=== PATIENT | female | born 1965 | race Two or more races ===

== ENCOUNTER 2016-09-03 07:45 | Emergency (ER) | payer BC, OTHER ==
[~2016-09-03] VITALS: Ht 162.6 cm; Wt 68.0 kg
--- NOTE | 2016-09-03 07:46 | NUR ---
dr mena at the bedside for eval and exam.
[2016-09-03] MEDS: ACETAMINOPHEN ES 500 MG TABLET PO ONE (07:49)
[2016-09-03] MEDS ORDERED: ACETAMINOPHEN ES 500 MG TABLET ONE (08:00)
--- NOTE | 2016-09-03 08:19 | NUR ---
Patient discharged to home in stable conditon. Written and verbal after care instructions given. Patient verbalizes understanding of instructions.
[2016-09-03 08:20] VITALS: BP 115/75
== END 2016-09-03 08:20 | disposition home or self-care (01) ==
LOC: ER 07:45
DX: S92.405A Nondisplaced unspecified fracture of left great toe, initial encounter for closed fracture (principal); X58.XXXA Exposure to other specified factors, initial encounter; Y93.89 Activity, other specified; Y92.9 Unspecified place or not applicable; Y99.9 Unspecified external cause status
CPT/HCPCS: 73660; A4663

== ENCOUNTER 2017-02-07 01:56 | Emergency (ER) | payer OTHER ==
[~2017-02-07] VITALS: Ht 162.6 cm; Wt 68.0 kg
--- NOTE | 2017-02-07 02:22 | NUR ---
Patient walked in to ER c/o needlestick injury. 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 She states that the needle punctured the patient and then herself. To room 5A. HIWOT provided with details per needlestick protocol.
[2017-02-07] MEDS ORDERED: TDAP DIPH,PERTUSS,TET VAC/PF 0.5 ML DISP.SYRIN IM ONE ×2 (02:45→02:52)
--- NOTE | 2017-02-07 03:05 | NUR ---
Patient discharged to home in stable conditon. Written and verbal after care instructions given. Patient verbalizes understanding of instructions.
[2017-02-08 10:07] LABS: HEPATITIS B SURFACE AB Non Reactive (.)
== END 2017-02-07 03:09 | disposition home or self-care (01) ==
LOC: ER 01:56
DX: Z77.21 Contact with and (suspected) exposure to potentially hazardous body fluids (principal); S59.911A Unspecified injury of right forearm, initial encounter; Z23 Encounter for immunization; W46.0XXA Contact with hypodermic needle, initial encounter; Y93.89 Activity, other specified; Y92.89 Other specified places as the place of occurrence of the external cause; Y99.0 Civilian activity done for income or pay
CPT/HCPCS: 36415; 86704; 86706; 86803; 87806; 90715; A4663

== ENCOUNTER 2017-02-16 07:37 | Outpatient (CLI) | payer BC, OTHER ==
[2017-02-16 08:40] LABS: BASOPHILS # (AUTO) 0.1 K/uL (0.0-8.0); BASOPHILS % (AUTO) 0.9 % (0.0-2.0); EOSINOPHILS # (AUTO) 0.2 K/uL (0.0-0.7); EOSINOPHILS % (AUTO) 2.6 % (0.0-7.0); HEMATOCRIT 40.5 % (31.2-41.9); LYMPHOCYTES # (AUTO) 1.7 K/uL (20.0-40.0); LYMPHOCYTES % (AUTO) 22.9 % (20.5-51.5); MEAN CORPUSCULAR HEMOGLOBIN 29.8 uug (24.7-32.8); MEAN CORPUSCULAR HGB CONC 35 g/dL (32.3-35.6); MEAN CORPUSCULAR VOLUME 86.4 fL (75.5-95.3); MONOCYTES # (AUTO) 0.4 K/uL (2.0-10.0); MONOCYTES % (AUTO) 5.9 % (0.0-11.0); NEUTROPHILS # (AUTO) 4.9 K/uL (1.8-8.9); NEUTROPHILS % (AUTO) 67.7 % (38.5-71.5); PLATELET COUNT (AUTO) 246 K/uL (179-408); RED BLOOD CELL COUNT(AUTO) 4.69 MIL/uL (3.63-4.92); WHITE BLOOD COUNT (AUTO) 7.2 K/uL (3.8-11.8)
[2017-02-16 08:53] LABS: *BILIRUBIN,URIN NEGATIVE (NEGATIVE); *BLOOD, URINE NEGATIVE (NEGATIVE); *CLARITY,URINE CLEAR (CLEAR); *COLOR,URINE LIGHT YELLOW (YELLOW); *KETONES,URINE NEGATIVE (NEGATIVE); *PROTEIN,URINE NEGATIVE (NEGATIVE); *UROBILINOGEN,URINE 0.2 E.U./dl (NORMAL); LEUKOCYTE ESTERASE ,URINE NEGATIVE (NEGATIVE); NITRITE, URINE NEGATIVE (NEGATIVE); PH,URINE 5.5 (5.0-8.0); UGLUCOSE NEGATIVE (NEGATIVE)
[2017-02-16 08:54] LABS: BILIRUBIN,TOTAL 0.5 mg/dL (0.2-1.0); TOTAL PROTEIN, SERUM 8.3 g/dL (6.4-8.2)
[2017-02-16 08:57] LABS: THYROID STIMULATING HORMONE 2.979 mIU/mL (0.358-3.740)
[2017-02-16 09:01] LABS: BACTERIA,URINE MODERATE /HPF (NONE SEEN); RBC,URINE 0-3 /HPF (0-3); SQUAMOUS EPITHELIAL CELL,UR FEW /HPF (NONE SEEN); WBC,URINE 0-3 /HPF (0-3)
[2017-02-16 10:04] LABS: CREATININE 0.8 mg/dL (0.6-1.3)
[2017-02-17 12:06] LABS: CORTISOL 9.9 ug/dL (.); VIT D, 25-HYDROXY 19.5 ng/mL (30.0-100.0)
== END 2017-02-16 23:59 | disposition home or self-care (01) ==
LOC: LAB 07:37
PROVIDERS: ATTEND Family Medicine
DX: Z00.01 Encounter for general adult medical examination with abnormal findings (principal); Z11.59 Encounter for screening for other viral diseases; E55.9 Vitamin D deficiency, unspecified; R63.5 Abnormal weight gain
CPT/HCPCS: 36415; 71020; 82306; 82533; 82746; 84443; 85025; 86803; 87086

== ENCOUNTER 2017-02-22 19:12 | Emergency (ER) | payer BC, OTHER ==
[~2017-02-22] VITALS: Ht 160 cm; Wt 68.0 kg
--- NOTE | 2017-02-22 19:33 | NUR ---
DR MCKINLEY INTO EVAL PATIENT
[2017-02-22] MEDS ORDERED: IBUPROFEN 800 MG TABLET PO ONE (19:45)
[2017-02-22] MEDS ORDERED: IBUPROFEN 800 MG TABLET ONE (20:04)
--- NOTE | 2017-02-22 20:30 | NUR ---
PATIENT CRYING AND FRUSTRATED ABOUT BEING INJURIED. DR MCKINLEY REQUESTED FOR ERENDIRA BERNARDO TO SPEAK TO PATIENT
--- NOTE | 2017-02-22 21:30 | NUR ---
ERENDIRA BERNARDO INTO SPEAK WITH PATIENT
--- NOTE | 2017-02-22 21:52 | NUR ---
Patient discharged to home in stable conditon WALKED OUT OF ER WITH STEADY GAIT. Written and verbal after care instructions given. Patient verbalizes understanding of instructions. NO DISTRESS NOTED
[2017-02-22 21:54] VITALS: BP 120/62
== END 2017-02-22 22:01 | disposition home or self-care (01) ==
LOC: ER 19:14
DX: S92.502A Displaced unspecified fracture of left lesser toe(s), initial encounter for closed fracture (principal); W22.8XXA Striking against or struck by other objects, initial encounter; Y93.89 Activity, other specified; Y92.89 Other specified places as the place of occurrence of the external cause; Y99.8 Other external cause status
CPT/HCPCS: 73660; 99284; A4663

== ENCOUNTER 2017-04-06 13:05 | Day surgery (SDC) | payer BC, OTHER ==
[2017-04-06 13:51] LABS: BASOPHILS # (AUTO) 0.1 K/uL (0.0-8.0); BASOPHILS % (AUTO) 1.1 % (0.0-2.0); EOSINOPHILS # (AUTO) 0.1 K/uL (0.0-0.7); EOSINOPHILS % (AUTO) 2.3 % (0.0-7.0); HEMATOCRIT 41.7 % (31.2-41.9); HEMOGLOBIN 14.4 g/dL (10.9-14.3); LYMPHOCYTES # (AUTO) 1.3 K/uL (20.0-40.0); LYMPHOCYTES % (AUTO) 21.1 % (20.5-51.5); MEAN CORPUSCULAR HGB CONC 35 g/dL (32.3-35.6); MEAN CORPUSCULAR VOLUME 86.7 fL (75.5-95.3); MONOCYTES # (AUTO) 0.4 K/uL (2.0-10.0); MONOCYTES % (AUTO) 6.3 % (0.0-11.0); NEUTROPHILS # (AUTO) 4.3 K/uL (1.8-8.9); NEUTROPHILS % (AUTO) 69.2 % (38.5-71.5); PLATELET COUNT (AUTO) 230 K/uL (179-408); RED BLOOD CELL COUNT(AUTO) 4.81 MIL/uL (3.63-4.92); WHITE BLOOD COUNT (AUTO) 6.3 K/uL (3.8-11.8)
[2017-04-06 14:04] LABS: *BILIRUBIN,URIN NEGATIVE (NEGATIVE); *BLOOD, URINE NEGATIVE (NEGATIVE); *CLARITY,URINE CLEAR (CLEAR); *COLOR,URINE YELLOW (YELLOW); *KETONES,URINE NEGATIVE (NEGATIVE); *PROTEIN,URINE NEGATIVE (NEGATIVE); *UROBILINOGEN,URINE 0.2 E.U./dl (NORMAL); LEUKOCYTE ESTERASE ,URINE NEGATIVE (NEGATIVE); NITRITE, URINE NEGATIVE (NEGATIVE); PH,URINE 5.5 (5.0-8.0); UGLUCOSE NEGATIVE (NEGATIVE)
[2017-04-06 14:26] LABS: CREATININE 0.8 mg/dL (0.6-1.3); POTASSIUM 4.1 mmol/L (3.5-5.1)
[2017-04-06 14:31] LABS: BILIRUBIN,TOTAL 0.4 mg/dL (0.2-1.0); TOTAL PROTEIN, SERUM 7.8 g/dL (6.4-8.2)
[2017-04-06 14:49] LABS: BACTERIA,URINE FEW /HPF (NONE SEEN); RBC,URINE NONE SEEN /HPF (0-3); SQUAMOUS EPITHELIAL CELL,UR FEW /HPF (NONE SEEN); WBC,URINE 0-3 /HPF (0-3)
[2017-04-06] MEDS ORDERED: PROPOFOL 200 MG/20 ML BOTTLE IV ONE (14:55)
== END 2017-04-06 16:15 | disposition home or self-care (01) ==
LOC: DS 13:05
PROVIDERS: ATTEND Internal Medicine Gastroenterology
DX: Z12.11 Encounter for screening for malignant neoplasm of colon (principal); K62.6 Ulcer of anus and rectum; K64.8 Other hemorrhoids
CPT/HCPCS: 36415; 45380; 71045; 80053; 81001; 85025; 85730; 93005; A4217; A4663; J3490; J7120

== ENCOUNTER 2017-10-07 10:53 | Emergency (ER) | payer BC, OTHER ==
[~2017-10-07] VITALS: Ht 160 cm; Wt 68.0 kg
--- NOTE | 2017-10-07 12:03 | NUR ---
MKSE COMPLETED, PT D/C'D HOME, ACI/COPY OF XRAY RESULTS GIVEN. PT AMBULATED W/O DIFF/TOOK ALL BELONGINGS.
[2017-10-07 12:04] VITALS: BP 115/72
[2017-10-07 15:02] LABS: *AMPHETAMINE, URINE NEGATIVE (NEGATIVE); *BARBITURATE, URINE NEGATIVE (NEGATIVE); *CANNABINOID, URINE NEGATIVE (NEGATIVE); *COCCAINE, URINE NEGATIVE (NEGATIVE); *OPIATE, URINE NEGATIVE (NEGATIVE); *PHENCYCLIDINE SCREEN,URINE NEGATIVE (NEGATIVE)
== END 2017-10-07 12:05 | disposition home or self-care (01) ==
LOC: ER 10:53
DX: S60.221A Contusion of right hand, initial encounter (principal); W23.0XXA Caught, crushed, jammed, or pinched between moving objects, initial encounter; Y93.89 Activity, other specified; Y92.89 Other specified places as the place of occurrence of the external cause; Y99.8 Other external cause status
CPT/HCPCS: 73130; 80307; A4663

== ENCOUNTER 2018-04-29 08:11 | Outpatient (CLI) | payer BC, OTHER | END 2018-04-29 23:59 | disposition home or self-care (01) | LOC: RAD 08:11 | PROVIDERS: ATTEND Family Medicine | DX: M25.562 Pain in left knee (principal); M25.552 Pain in left hip | CPT/HCPCS: 73502 ==

== ENCOUNTER 2019-05-09 23:40 | Emergency (ER) | payer BC, OTHER ==
[~2019-05-09] VITALS: Ht 165.1 cm; Wt 65.8 kg
--- NOTE | 2019-05-10 00:13 | NUR ---
Patient discharged to home in stable conditon WITH TAKING PATIENT HOME. Written and verbal after care instructions given. Patient verbalizes understanding of instructions. WALKED OUT OF ER WITH NO DISTRESS NOTED.
[2019-05-10 00:14] VITALS: BP 115/70
== END 2019-05-10 00:17 | disposition home or self-care (01) ==
LOC: ER 23:42
DX: R42 Dizziness and giddiness (principal); E78.5 Hyperlipidemia, unspecified
CPT/HCPCS: A4663

== ENCOUNTER 2019-08-23 21:08 | Emergency (ER) | payer BC, OTHER ==
[~2019-08-23] VITALS: Ht 160 cm; Wt 68.0 kg
--- NOTE | 2019-08-23 21:10 | NUR ---
Patient BIB coworker via w/c. 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 c/o dizziness that started at 1999. Patient states she feels like the room is spinning. Patient also states she vomited x1 with watery appearance. Patient has hx of vertigo, takes medication at home but does not bring it to work. Speech is clear and able to make needs known / follow commands. POC blood sugar done with result of 97. Breathing even and unlabored. no cough or SOB noted. Patient denies any CP, Blurred vision, diarrhea.
--- NOTE | 2019-08-23 21:15 | NUR ---
Dr. Jesus at bedside for MSE
[2019-08-23] MEDS ORDERED: MECLIZINE HCL 25 MG TABLET PO ONE (21:30)
[2019-08-23] MEDS ORDERED: IV NORMAL SALINE 1000 ML BAG IV ONE (21:30)
[2019-08-23] MEDS ORDERED: ONDANSETRON 4 MG/2 ML VIAL IV ONE (21:30)
[2019-08-23] MEDS ORDERED: ONDANSETRON 4 MG/2 ML VIAL ONE (21:40)
[2019-08-23] MEDS ORDERED: MECLIZINE HCL 25 MG TABLET ONE (21:40)
[2019-08-23 21:45] LABS: BASOPHILS # (AUTO) 0.1 K/uL (0.0-8.0); BASOPHILS % (AUTO) 0.9 % (0.0-2.0); EOSINOPHILS # (AUTO) 0.1 K/uL (0.0-0.7); EOSINOPHILS % (AUTO) 0.6 % (0.0-7.0); HEMATOCRIT 42.2 % (31.2-41.9); HEMOGLOBIN 14.2 g/dL (10.9-14.3); LYMPHOCYTES % (AUTO) 21.5 % (20.5-51.5); MEAN CORPUSCULAR HEMOGLOBIN 29.2 uug (24.7-32.8); MEAN CORPUSCULAR HGB CONC 34 g/dL (32.3-35.6); MEAN CORPUSCULAR VOLUME 86.5 fL (75.5-95.3); MONOCYTES # (AUTO) 0.5 K/uL (2.0-10.0); MONOCYTES % (AUTO) 5.6 % (0.0-11.0); NEUTROPHILS # (AUTO) 6.6 K/uL (1.8-8.9); NEUTROPHILS % (AUTO) 71.4 % (38.5-71.5); PLATELET COUNT (AUTO) 248 K/uL (179-408); RED BLOOD CELL COUNT(AUTO) 4.87 MIL/uL (3.63-4.92); WHITE BLOOD COUNT (AUTO) 9.3 K/uL (3.8-11.8)
[2019-08-23 21:51] LABS: CREATININE 0.9 mg/dL (0.6-1.3); POTASSIUM 3.7 mmol/L (3.5-5.1)
--- NOTE | 2019-08-23 22:27 | NUR ---
IV removed. Catheter intact and site benign. Pressure and 4x4 gauze applied to site. No bleeding noted. Patient discharged to home in stable condition. Written and verbal after care instructions given. Patient verbalizes understanding of instructions. Stressed follow up or return to ER for worsening s/s. Patient ambulating with steady gait. NAD noted. Denies any Dizziness at this time
[2019-08-23 22:33] VITALS: BP 142/80
== END 2019-08-23 22:27 | disposition home or self-care (01) ==
LOC: ER 21:10
DX: R42 Dizziness and giddiness (principal); R11.0 Nausea
CPT/HCPCS: 36415; 80048; 85025; 93005; 96374; 99284; J2405; A4663; J7030; J8597

== ENCOUNTER → 2019-12-22 | Outpatient (CLI) | payer BC, OTHER ==
[2019-12-22 11:43] LABS: BASOPHILS # (AUTO) 0.1 K/uL (0.0-8.0); EOSINOPHILS # (AUTO) 0.1 K/uL (0.0-0.7); LYMPHOCYTES # (AUTO) 1.8 K/uL (20.0-40.0); LYMPHOCYTES % (AUTO) 25.2 % (20.5-51.5); MEAN CORPUSCULAR HEMOGLOBIN 29.3 uug (24.7-32.8); MEAN CORPUSCULAR HGB CONC 34 g/dL (32.3-35.6); MONOCYTES # (AUTO) 0.4 K/uL (2.0-10.0); MONOCYTES % (AUTO) 5.7 % (0.0-11.0); NEUTROPHILS # (AUTO) 4.9 K/uL (1.8-8.9); NEUTROPHILS % (AUTO) 67.1 % (38.5-71.5); PLATELET COUNT (AUTO) 259 K/uL (179-408); RED BLOOD CELL COUNT(AUTO) 4.77 MIL/uL (3.63-4.92); WHITE BLOOD COUNT (AUTO) 7.2 K/uL (3.8-11.8)
[2019-12-22 11:53] LABS: THYROID STIMULATING HORMONE 2.052 mIU/mL (0.358-3.740)
[2019-12-22 12:44] LABS: BILIRUBIN,TOTAL 0.6 mg/dL (0.2-1.0); CREATININE 0.9 mg/dL (0.6-1.3); MAGNESIUM 2.1 mg/dL (1.8-2.4); POTASSIUM 3.6 mmol/L (3.5-5.1); TOTAL PROTEIN, SERUM 7.9 g/dL (6.4-8.2); URIC ACID 5.6 mg/dL (2.6-6.0)
== END | disposition home or self-care (01) ==
LOC: LAB 11:05
PROVIDERS: ATTEND Family Medicine
DX: E55.9 Vitamin D deficiency, unspecified (principal); E78.2 Mixed hyperlipidemia; E87.1 Hypo-osmolality and hyponatremia; R73.9 Hyperglycemia, unspecified
CPT/HCPCS: 36415; 83735; 84443; 84480; 84550; 85025

== ENCOUNTER 2020-05-20 07:36 | Outpatient (CLI) | payer BC, OTHER ==
[2020-05-20 08:51] LABS: BASOPHILS # (AUTO) 0.1 K/uL (0.0-8.0); BASOPHILS % (AUTO) 1.1 % (0.0-2.0); EOSINOPHILS # (AUTO) 0.1 K/uL (0.0-0.7); EOSINOPHILS % (AUTO) 1.2 % (0.0-7.0); HEMATOCRIT 39.1 % (31.2-41.9); HEMOGLOBIN 13.3 g/dL (10.9-14.3); LYMPHOCYTES # (AUTO) 1.8 K/uL (20.0-40.0); LYMPHOCYTES % (AUTO) 27.9 % (20.5-51.5); MEAN CORPUSCULAR HEMOGLOBIN 29.7 uug (24.7-32.8); MEAN CORPUSCULAR HGB CONC 34 g/dL (32.3-35.6); MEAN CORPUSCULAR VOLUME 87.5 fL (75.5-95.3); MONOCYTES # (AUTO) 0.3 K/uL (2.0-10.0); MONOCYTES % (AUTO) 4.7 % (0.0-11.0); NEUTROPHILS # (AUTO) 4.2 K/uL (1.8-8.9); NEUTROPHILS % (AUTO) 65.1 % (38.5-71.5); PLATELET COUNT (AUTO) 234 K/uL (179-408); RED BLOOD CELL COUNT(AUTO) 4.46 MIL/uL (3.63-4.92); WHITE BLOOD COUNT (AUTO) 6.4 K/uL (3.8-11.8)
[2020-05-20 10:22] LABS: THYROID STIMULATING HORMONE 2.303 mIU/mL (0.358-3.740)
[2020-05-20 10:24] LABS: *BILIRUBIN,URIN NEGATIVE (NEGATIVE); *BLOOD, URINE NEGATIVE (NEGATIVE); *CLARITY,URINE CLEAR (CLEAR); *COLOR,URINE LIGHT YELLOW (YELLOW); *KETONES,URINE NEGATIVE (NEGATIVE); *UROBILINOGEN,URINE 0.2 E.U./dl (NORMAL); LEUKOCYTE ESTERASE ,URINE TRACE (NEGATIVE); NITRITE, URINE NEGATIVE (NEGATIVE); UGLUCOSE NEGATIVE (NEGATIVE)
[2020-05-20 10:54] LABS: POTASSIUM 3.8 mmol/L (3.5-5.1)
[2020-05-20 11:19] LABS: BILIRUBIN,TOTAL 0.2 mg/dL (0.2-1.0); CREATININE 0.7 mg/dL (0.6-1.3); TOTAL PROTEIN, SERUM 7.3 g/dL (6.4-8.2)
[2020-05-20 14:13] LABS: RBC,URINE 0-3 /HPF (0-3)
[2020-05-20 14:14] LABS: BACTERIA,URINE NONE SEEN /HPF (NONE SEEN); SQUAMOUS EPITHELIAL CELL,UR FEW /HPF (NONE SEEN)
== END 2020-05-20 23:59 | disposition home or self-care (01) ==
LOC: LAB 07:36
PROVIDERS: ATTEND Family Medicine
DX: R06.2 Wheezing (principal); M25.50 Pain in unspecified joint; Z00.01 Encounter for general adult medical examination with abnormal findings; Z72.89 Other problems related to lifestyle
CPT/HCPCS: 82306; 82746; 84443; 85025; 86038; 86803; 87086

== ENCOUNTER 2020-05-22 14:31 | Outpatient (CLI) | payer BC, OTHER | END 2020-05-22 23:59 | disposition home or self-care (01) | LOC: RAD 14:31 | PROVIDERS: ATTEND Family Medicine | DX: J98.4 Other disorders of lung (principal) | CPT/HCPCS: 71046 ==

== ENCOUNTER 2021-03-14 07:59 | Emergency (ER) | payer BC, OTHER ==
[~2021-03-14] VITALS: Ht 154.9 cm; Wt 57.2 kg
--- NOTE | 2021-03-14 08:00 | NUR ---
DR MCKINLEY AT BEDSIDE FOR MSE
[2021-03-14 09:20] VITALS: BP 106/69
--- NOTE | 2021-03-14 09:23 | NUR ---
Patient discharged to home in stable condition. Written and verbal after care instructions given. Patient verbalizes understanding of instructions. Stressed follow up or return to ER for worsening s/s.
== END 2021-03-14 09:23 | disposition home or self-care (01) ==
LOC: ER 07:59
DX: S92.402A Displaced unspecified fracture of left great toe, initial encounter for closed fracture (principal); S91.202A Unspecified open wound of left great toe with damage to nail, initial encounter; W18.40XA Slipping, tripping and stumbling without falling, unspecified, initial encounter; Y92.89 Other specified places as the place of occurrence of the external cause; Z83.3 Family history of diabetes mellitus
CPT/HCPCS: 73660; A4663

== ENCOUNTER 2021-04-20 12:27 | Emergency (ER) | payer BC, OTHER ==
[~2021-04-20] VITALS: Ht 152.4 cm; Wt 63.5 kg
[2021-04-20] MEDS ORDERED: MECLIZINE HCL 25 MG TABLET PO ONE (13:15)
[2021-04-20] MEDS ORDERED: MECLIZINE HCL 25 MG TABLET ONE (13:32)
--- NOTE | 2021-04-20 14:03 | NUR ---
PT SEEN AND EVALUATED BY DR SANTIAGO. DISCHARGE INSTRUCTIONS RENDERED PER MD ORDERS.
[2021-04-20 14:05] VITALS: BP 120/70
== END 2021-04-20 14:06 | disposition home or self-care (01) ==
LOC: ER 12:28
DX: R42 Dizziness and giddiness (principal); H55.09 Other forms of nystagmus
CPT/HCPCS: A4663; J8597

== ENCOUNTER 2021-04-30 07:58 | Outpatient (CLI) | payer BC, OTHER ==
[2021-04-30 09:18] LABS: BILIRUBIN,TOTAL 0.6 mg/dL (0.2-1.0); CREATININE 0.7 mg/dL (0.6-1.3); POTASSIUM 3.9 mmol/L (3.5-5.1); TOTAL PROTEIN, SERUM 8.1 g/dL (6.4-8.2)
[2021-04-30 09:27] LABS: HEMATOCRIT 38.9 % (31.2-41.9); MEAN CORPUSCULAR HEMOGLOBIN 29.5 uug (24.7-32.8); MEAN CORPUSCULAR VOLUME 86.9 fL (75.5-95.3); PLATELET COUNT (AUTO) 241 K/uL (179-408)
[2021-04-30 09:44] LABS: THYROID STIMULATING HORMONE 3.324 mIU/mL (0.358-3.740)
[2021-04-30 11:16] LABS: URIC ACID 4.6 mg/dL (2.6-6.0)
== END 2021-04-30 23:59 | disposition home or self-care (01) ==
LOC: XRAY 07:58 → LAB 07:58 → XRAY 23:59
PROVIDERS: ATTEND Family Medicine
DX: E55.9 Vitamin D deficiency, unspecified (principal); M85.80 Other specified disorders of bone density and structure, unspecified site; M25.521 Pain in right elbow
CPT/HCPCS: 36415; 73080; 82306; 84443; 84550; 85025